=== PATIENT | male | born 1965 | race American Indian/Alaskan Native ===

== ENCOUNTER 2021-03-31 18:12 | Emergency (ER) | payer OTHER ==
[~2021-03-31] VITALS: Ht 188 cm; Wt 72.6 kg
[2021-03-31 19:23] LABS: PLATELET COUNT 182 K/uL (142-355)
[2021-03-31 19:31] LABS: POTASSIUM 3.6 mmol/L (3.6-5.2)
[2021-03-31 20:04] VITALS: BP 129/65; TEMP 100.9
== END 2021-03-31 20:04 | disposition home or self-care (01) ==
LOC: ED 18:12
PROVIDERS: Emergency Medicine
DX: B34.9 Viral infection, unspecified (principal)
CPT/HCPCS: 80048; 85027; 99283

== ENCOUNTER 2022-05-16 20:51 | Emergency (ER) | payer OTHER ==
[~2022-05-16] VITALS: Ht 188 cm; Wt 77.1 kg
[2022-05-16 22:07] LABS: PLATELET COUNT 294 K/uL (142-355)
[2022-05-16 22:09] LABS: POTASSIUM 3.4 mmol/L (3.6-5.2)
[2022-05-16 22:24] LABS: PARTIAL THROMBOPLASTIN TIME 25.6 SECONDS (24.5-33.6)
[2022-05-17 01:20] VITALS: BP 133/71; TEMP 99.2
== END 2022-05-17 01:20 | disposition short-term general hospital (02) ==
LOC: ED 20:51
PROVIDERS: Emergency Medicine
DX: I47.1 Supraventricular tachycardia (principal); E11.65 Type 2 diabetes mellitus with hyperglycemia; Z11.52 Encounter for screening for COVID-19
CPT/HCPCS: 36415; 80053; 80307; 83735; 84484; 85027; 85610; 85730; 87635; 93005; 96374; 96376; 99284; J0153; U0003

== ENCOUNTER 2022-09-22 16:42 | Emergency (ER) | payer BC ==
[~2022-09-22] VITALS: Ht 188 cm; Wt 78.0 kg
[2022-09-22 17:38] LABS: PLATELET COUNT 343 K/uL (142-355)
[2022-09-22 17:46] LABS: POTASSIUM 4.2 mmol/L (3.6-5.2)
[2022-09-22 18:33] VITALS: BP 149/88; TEMP 97.7
== END 2022-09-22 19:20 | disposition short-term general hospital (02) ==
LOC: ED 16:42
PROVIDERS: Emergency Medicine
DX: I47.1 Supraventricular tachycardia (principal); I21.4 Non-ST elevation (NSTEMI) myocardial infarction; I10 Essential (primary) hypertension; Z11.52 Encounter for screening for COVID-19
CPT/HCPCS: 36415; 80053; 80307; 81002; 84484; 85027; 85379; 85730; 87635; 93005; 96361; 96365; 96372; 96376; 99285; J0153; J1650; U0003

== ENCOUNTER 2023-02-05 09:54 | Outpatient (CLI) | payer BC | END 2023-02-05 22:09 | disposition home or self-care (01) | LOC: RAD 09:54 | PROVIDERS: ATTEND Nurse Practitioner Family | DX: R10.84 Generalized abdominal pain (principal) ==

== ENCOUNTER 2023-10-12 19:31 | Emergency (ER) | payer BC ==
[~2023-10-12] VITALS: Ht 188 cm; Wt 77.1 kg
[2023-10-12 19:31] VITALS: TEMP 98.8
[2023-10-12 20:23] LABS: PLATELET COUNT 288 K/uL (142-355)
[2023-10-12 20:40] LABS: POTASSIUM 3.7 mmol/L (3.6-5.2)
[2023-10-12] MEDS ORDERED: [UNRECOGNIZED DRUG - OTHER] SC ONE (20:48)
[2023-10-12] MEDS ORDERED: INSULIN REGULAR SC ONE (20:48)
[2023-10-12] MEDS ORDERED: INSULIN 100 UNITS/ML EA ONE (21:04)
[2023-10-12 21:55] VITALS: BP 151/70
== END 2023-10-12 21:55 | disposition home or self-care (01) ==
LOC: ED 19:31
PROVIDERS: Internal Medicine Endocrinology, Diabetes & Metabolism
DX: R10.30 Lower abdominal pain, unspecified (principal); N13.9 Obstructive and reflux uropathy, unspecified; E11.65 Type 2 diabetes mellitus with hyperglycemia
CPT/HCPCS: 36415; 51702; 80053; 85027; 99282; J1815